=== PATIENT | male | born 1935 | race Two or more races ===

== ENCOUNTER 2023-12-26 16:15 | Inpatient (IN) | payer OTHER ==
[~2023-12-26] VITALS: Ht 152.4 cm; Wt 63.5 kg
[2023-12-26] MEDS ORDERED: LOSARTAN POTASS50 MG PO (16:32)
[2023-12-26] MEDS ORDERED: TAMS0.4C PO (16:32)
[2023-12-26] MEDS ORDERED: JANUMET XR 1001 EACH PO (16:32)
[2023-12-26] MEDS ORDERED: GLIPIZIDE XL10 MG (16:32)
[2023-12-26] MEDS ORDERED: RESTORIL30 M1 PO (16:32)
[2023-12-26] MEDS ORDERED: PLAVIX75 MG PO (16:33)
[2023-12-26] MEDS ORDERED: LIPITOR20 MG PO (16:33)
[2023-12-26] MEDS ORDERED: ZETIA10 MG PO (16:33)
[2023-12-26] MEDS ORDERED: NIFEDIPINE ER30 M1 PO (16:33)
[2023-12-26] MEDS ORDERED: NABUMETONE750 MG (16:33)
[2023-12-26] MEDS ORDERED: FEROCON CAPSUL1 EACH PO (16:34)
[2023-12-26] MEDS ORDERED: CARVEDILOL ER40 MG (16:34)
[2023-12-26] MEDS ORDERED: 0.9 % SODIUM CHLORIDE 1,000 ML IV SCH ×2 (16:45→17:00)
[2023-12-26] MEDS ORDERED: LINEZOLID IN DEXTROSE 5% 600 MG/300 ML PIGGYBAG IV ONE (16:45)
--- NOTE | 2023-12-26 16:46 | NUR ---
PACIENTE ALERTA Y ORIENTADO X3, EN COMPANIA DE FAMILIAR QUIEN REFIERE LO JORDEN POR CANGRENA EN EL PIE JUNA. SE MONITOREAN VS Y SE UBICA
[2023-12-26] MEDS ORDERED: KETOROLAC TROMETHAMINE 15 MG VIAL IU ONE (17:00)
[2023-12-26] MEDS ORDERED: DEXTROSE 50 % IN WATER 0.5 G/ML DISP.SYRIN IV PRN (17:00)
[2023-12-26] MEDS ORDERED: INSULIN LISPRO 1,000 UNIT/10 ML UNITS SUBCUTANEO PRN (17:00)
[2023-12-26] MEDS ORDERED: ACETAMINOPHEN 500 MG GEL..CAP PO PRN (17:00)
[2023-12-26] MEDS ORDERED: KETOROLAC TROMETHAMINE 30 MG VIAL ONE ×2 (17:13→21:19)
[2023-12-26 17:21] LABS: HEMATOCRIT 34.7 % (39.0-48.0); HEMOGLOBIN 11.9 g/dL (13-16.00); MEAN CELL VOLUME 89.8 fL (80.0-100.00); MEAN CORPUSCULAR HEMOGLOBIN 30.9 pg (27.00-32.0); MEAN CORPUSCULAR HGB CONC 34.4 g/dl (32.0-36.0); PLATELET COUNT 327 K/uL (150-450); RED BLOOD COUNT 3.86 M/uL (4.00-6.00); RED CELL DISTRIBUTION WIDTH 13.1 % (11.5-14.5)
[2023-12-26 17:43] LABS: INR 1.09; PARTIAL THROMBOPLASTIN TIME 31.9 SECONDS (22.0-34.0); PROTHROMBIN TIME 11.4 SECONDS (9.0-11.5)
[2023-12-26 19:18] LABS: URINE APPEARANCE Cloudy; URINE BILIRRUBIN Negative (NEGATIVE); URINE BLOOD Negative; URINE COLOR Yellow; URINE KETONE Trace (NEGATIVE); URINE LEUKOCYTE Negative; URINE NITRATE Negative; URINE UROBILINOGEN 0.2 E.U./dl
[2023-12-26 19:20] LABS: URINE GLUCOSE >=1000 MG/DL (NEGATIVE); URINE PROTEIN 100 (NEGATIVE)
[2023-12-26 19:21] LABS: URINE BACTERIA 30.2 uL (0.0-1933); URINE CAST 5.03 uL (0.0-1.40); URINE EPITHELIAL CELLS 14.2 uL (0.0-38.8); URINE WBC 6.6 uL (0.0-23.2)
[2023-12-26 19:22] LABS: URINE RBC 1.2 uL (0.0-20.8)
[2023-12-26] MEDS ORDERED: CARVEDILOL 6.25 MG TABLET PO SCH (21:00)
[2023-12-26] MEDS ORDERED: KETOROLAC TROMETHAMINE 30 MG VIAL IV STA (21:07)
[2023-12-26] MEDS ORDERED: KETOROLAC TROMETHAMINE 30 MG VIAL IV PRN (21:15)
[2023-12-26 21:59] LABS: CALCIUM 10.1 mg/dL (8.5-10.1); CREATININE SERUM 1.08 mg/dL (0.70-1.30); GFR 64.68; POTASSIUM 4.14 mEq/L (3.5-5.1)
[2023-12-27] MEDS ORDERED: FAMOTIDINE/PF 20 MG/2 ML VIAL ONE (08:13)
[2023-12-27] MEDS ORDERED: ENOXAPARIN SODIUM 40 MG/0.4 ML SYRINGE SUBCUTANEO SCH (09:00)
[2023-12-27] MEDS ORDERED: TAMSULOSIN HCL 0.4 MG CAP PO SCH (09:00)
[2023-12-27] MEDS ORDERED: FAMOTIDINE/PF 20 MG in 0.9 % SODIUM CHLORIDE 8 ML IV PUSH SCH (09:00)
[2023-12-27] MEDS ORDERED: SODIUM HYPOCHLORITE 1OZ TOP SCH (09:00)
[2023-12-27] MEDS ORDERED: IRON FUM,PS/FOLIC/BCOMP,C NO.9 1 CAP CAPSULE PO SCH (09:00)
[2023-12-27] MEDS ORDERED: LINEZOLID IN DEXTROSE 5% 300 ML IV SCH (09:00)
[2023-12-27] MEDS ORDERED: ATORVASTATIN CALCIUM 40 MG TABLET PO SCH (09:00)
[2023-12-27] MEDS ORDERED: LOSARTAN POTASSIUM 50 MG TABLET PO SCH (09:00)
[2023-12-27 12:09] LABS: HEMATOCRIT 33.4 % (39.0-48.0); HEMOGLOBIN 11.5 g/dL (13-16.00); MEAN CELL VOLUME 89.9 fL (80.0-100.00); MEAN CORPUSCULAR HEMOGLOBIN 30.9 pg (27.00-32.0); MEAN CORPUSCULAR HGB CONC 34.4 g/dl (32.0-36.0); PLATELET COUNT 302 K/uL (150-450); RED BLOOD COUNT 3.72 M/uL (4.00-6.00); RED CELL DISTRIBUTION WIDTH 13.2 % (11.5-14.5)
[2023-12-28] MEDS ORDERED: FAMOTIDINE/PF 20 MG/2 ML VIAL ONE (08:27)
[2023-12-28 08:47] LABS: HEMATOCRIT 29.8 % (39.0-48.0); HEMOGLOBIN 10.3 g/dL (13-16.00); MEAN CELL VOLUME 88.8 fL (80.0-100.00); MEAN CORPUSCULAR HEMOGLOBIN 30.5 pg (27.00-32.0); MEAN CORPUSCULAR HGB CONC 34.4 g/dl (32.0-36.0); PLATELET COUNT 300 K/uL (150-450); RED BLOOD COUNT 3.36 M/uL (4.00-6.00)
[2023-12-28] MEDS ORDERED: CEFEPIME HCL 2,000 MG VIAL IV SCH (09:00)
[2023-12-28 09:27] LABS: ALBUMIN 2.9 gm/dL (3.4-5.0); BILIRUBIN TOTAL 0.46 mg/dL (0.3-1.2); CALCIUM 8.7 mg/dL (8.5-10.1); CREATININE SERUM 0.96 mg/dL (0.70-1.30); GFR 74.09; GLOBULINA 3.9 G/DL (2.4-3.5); POTASSIUM 4.38 mEq/L (3.5-5.1); TOTAL PROTEIN 6.8 gm/dL (6.4-8.2)
[2023-12-28] MEDS ORDERED: INSULIN NPH HUM/REG INSULIN HM 1,000 UNIT/10 ML UNITS SUBCUTANEO STA (11:04)
[2023-12-28] MEDS ORDERED: AMLODIPINE BESYLATE 5 MG TABLET PO SCH (17:00)
[2023-12-28] MEDS ORDERED: MORPHINE SULFATE 4 MG/ML VIAL IV PRN (19:00)
[2023-12-28] MEDS ORDERED: LINEZOLID 600 MG TABLET PO SCH (21:00)
[2023-12-29] MEDS ORDERED: INSULIN NPH HUM/REG INSULIN HM 1,000 UNIT/10 ML UNITS SUBCUTANEO SCH (08:00)
[2023-12-29] MEDS ORDERED: FAMOTIDINE/PF 20 MG/2 ML VIAL ONE (09:15)
[2023-12-29] MEDS ORDERED: TEMAZEPAM 15 MG CAPSULE PO SCH (21:00)
[2023-12-30] MEDS ORDERED: GABAPENTIN 100 MG CAPSULE PO STA (00:24)
[2023-12-30] MEDS ORDERED: DIPHENHYDRAMINE HCL 50 MG/ML VIAL 1ML IV PRN (00:30)
[2023-12-30] MEDS ORDERED: ONDANSETRON HCL 2 MG/ML VIAL IV PRN (00:30)
[2023-12-30] MEDS ORDERED: NALOXONE HCL 0.4 MG/ML AMPUL IV PRN (00:30)
[2023-12-30] MEDS ORDERED: GABAPENTIN 100 MG CAPSULE PO SCH (01:00)
[2023-12-30] MEDS ORDERED: INSULIN NPH HUM/REG INSULIN HM 1,000 UNIT/10 ML UNITS SUBCUTANEO SCH (17:00)
[2023-12-31] MEDS ORDERED: MORPHINE SULFATE 4 MG/ML CARTRIDGE IV ONE (16:15)
[2023-12-31] MEDS ORDERED: SENNA/DOCUSATE SODIUM 1 TAB TABLET PO SCH (21:00)
[2024-01-01 08:38] LABS: ALBUMIN 2.4 gm/dL (3.4-5.0); CALCIUM 8.4 mg/dL (8.5-10.1); CREATININE SERUM 0.88 mg/dL (0.70-1.30); GFR 81.92; PHOSPHOROUS 3.5 mg/dL (2.5-4.9); POTASSIUM 4.37 mEq/L (3.5-5.1)
[2024-01-01] MEDS ORDERED: MORPHINE SULFATE 4 MG/ML VIAL IV PRN (19:45)
[2024-01-02] MEDS ORDERED: MORPHINE SULFATE 4 MG/ML CARTRIDGE IV PRN (11:30)
[2024-01-03] MEDS ORDERED: INSULIN NPH HUM/REG INSULIN HM 1,000 UNIT/10 ML UNITS SUBCUTANEO SCH (08:00)
[2024-01-03] MEDS ORDERED: CEFTRIAXONE SODIUM 2,000 MG VIAL IV SCH (09:00)
[2024-01-03] MEDS ORDERED: CARVEDILOL 12.5 MG TABLET PO SCH (09:00)
[2024-01-03] MEDS ORDERED: AMLODIPINE BESYLATE 10 MG TABLET PO SCH (17:00)
[2024-01-03] MEDS ORDERED: LOSARTAN POTASSIUM 50 MG TABLET PO SCH (17:00)
[2024-01-04] MEDS ORDERED: MORPHINE SULFATE 4 MG/ML CARTRIDGE IV PRN (09:45)
[2024-01-05] MEDS ORDERED: INSULIN LISPRO 1,000 UNIT/10 ML UNITS SUBCUTANEO SCH (08:00)
[2024-01-05] MEDS ORDERED: INSULIN NPH HUM/REG INSULIN HM 1,000 UNIT/10 ML UNITS SUBCUTANEO SCH (17:00)
[2024-01-07 06:34] LABS: MEAN CELL VOLUME 89.3 fL (80.0-100.00); MEAN CORPUSCULAR HGB CONC 35.2 g/dl (32.0-36.0); PLATELET COUNT 329 K/uL (150-450); RED BLOOD COUNT 2.59 M/uL (4.00-6.00); RED CELL DISTRIBUTION WIDTH 13.3 % (11.5-14.5)
[2024-01-07 06:47] LABS: ALBUMIN 2.3 gm/dL (3.4-5.0); BILIRUBIN TOTAL 0.51 mg/dL (0.3-1.2); CALCIUM 8.1 mg/dL (8.5-10.1); CREATININE SERUM 0.81 mg/dL (0.70-1.30); GFR 90.14; GLOBULINA 3.6 G/DL (2.4-3.5); POTASSIUM 3.82 mEq/L (3.5-5.1); TOTAL PROTEIN 5.9 gm/dL (6.4-8.2)
[2024-01-07 06:48] LABS: C-REACTIVE PROTEIN 13.7 MG/DL (0.00-0.29)
[2024-01-07 06:50] LABS: ERYTHROCYTE SEDIMENTATION RATE 67 mm/hr
[2024-01-07 07:02] LABS: MEAN CORPUSCULAR HEMOGLOBIN 31.2 pg (27.00-32.0)
[2024-01-07 07:03] LABS: HEMATOCRIT 23.1 % (39.0-48.0); HEMOGLOBIN 8.1 g/dL (13-16.00)
[2024-01-07] MEDS ORDERED: CLOPIDOGREL BISULFATE 75 MG TABLET PO SCH (09:00)
[2024-01-07] MEDS ORDERED: TRAMADOL HCL 50 MG TABLET PO STA (13:08)
[2024-01-07 17:06] LABS: MEAN CELL VOLUME 89.3 fL (80.0-100.00); MEAN CORPUSCULAR HEMOGLOBIN 30.4 pg (27.00-32.0); MEAN CORPUSCULAR HGB CONC 34.2 g/dl (32.0-36.0); PLATELET COUNT 357 K/uL (150-450); RED BLOOD COUNT 2.56 M/uL (4.00-6.00)
[2024-01-07 17:08] LABS: HEMATOCRIT 22.9 % (39.0-48.0)
[2024-01-07 17:16] LABS: HEMOGLOBIN 7.8 g/dL (13-16.00)
[2024-01-07] MEDS ORDERED: SOD FERRIC GLUC COMPLX/SUCROSE 125 MG in 0.9 % SODIUM CHLORIDE 100 ML IV SCH (20:34)
[2024-01-07] MEDS ORDERED: VITAMIN B COMPLEX/LYSINE 1 ML ML PO SCH (20:35)
[2024-01-08] MEDS ORDERED: MORPHINE SULFATE 4 MG/ML CARTRIDGE IV PRN (07:30)
[2024-01-10] MEDS ORDERED: TRAMADOL HCL 50 MG TABLET PO PRN (06:30)
[2024-01-10] MEDS ORDERED: TRAMADOL HCL 50 MG TABLET PO STA (06:30)
[2024-01-10] MEDS ORDERED: INSULIN NPH HUM/REG INSULIN HM 1,000 UNIT/10 ML UNITS SUBCUTANEO SCH (08:00)
[2024-01-10 15:18] LABS: MEAN CELL VOLUME 88.1 fL (80.0-100.00); MEAN CORPUSCULAR HGB CONC 34.6 g/dl (32.0-36.0); PLATELET COUNT 420 K/uL (150-450); RED BLOOD COUNT 2.65 M/uL (4.00-6.00); RED CELL DISTRIBUTION WIDTH 13.5 % (11.5-14.5)
[2024-01-10 15:20] LABS: HEMATOCRIT 23.4 % (39.0-48.0); HEMOGLOBIN 8.1 g/dL (13-16.00); MEAN CORPUSCULAR HEMOGLOBIN 30.5 pg (27.00-32.0)
[2024-01-10] MEDS ORDERED: PANTOPRAZOLE SODIUM 40 MG TABLET.DR PO SCH (17:00)
[2024-01-11] MEDS ORDERED: INSULIN LISPRO 1,000 UNIT/10 ML UNITS SUBCUTANEO PRN (05:15)
[2024-01-11] MEDS ORDERED: INSULIN NPH HUM/REG INSULIN HM 1,000 UNIT/10 ML UNITS SUBCUTANEO SCH (08:00)
[2024-01-11] MEDS ORDERED: ENOXAPARIN SODIUM 30 MG/0.3 ML SYRINGE SUBCUTANEO SCH (09:00)
[2024-01-11 11:01] LABS: HEMATOCRIT 30.8 % (39.0-48.0); MEAN CELL VOLUME 89.4 fL (80.0-100.00); MEAN CORPUSCULAR HEMOGLOBIN 30.8 pg (27.00-32.0); MEAN CORPUSCULAR HGB CONC 34.5 g/dl (32.0-36.0); PLATELET COUNT 383 K/uL (150-450); RED BLOOD COUNT 3.44 M/uL (4.00-6.00); RED CELL DISTRIBUTION WIDTH 13.6 % (11.5-14.5)
[2024-01-11 11:18] LABS: HEMOGLOBIN 10.6 g/dL (13-16.00)
[2024-01-11] MEDS ORDERED: METROnidazole 500 MG TABLET PO SCH (17:00)
[2024-01-12] MEDS ORDERED: CEFEPIME HCL 2,000 MG in 0.9 % SODIUM CHLORIDE 100 ML IV SCH (21:00)
[2024-01-13] MEDS ORDERED: GABAPENTIN 300 MG CAPSULE PO SCH (17:25)
[2024-01-13] MEDS ORDERED: MORPHINE SULFATE 4 MG/ML CARTRIDGE IV PRN (17:30)
[2024-01-13] MEDS ORDERED: KETOROLAC TROMETHAMINE 30 MG VIAL IV SCH (18:00)
[2024-01-14 08:22] LABS: HEMATOCRIT 32.1 % (39.0-48.0); HEMOGLOBIN 10.6 g/dL (13-16.00); MEAN CELL VOLUME 89.7 fL (80.0-100.00); MEAN CORPUSCULAR HEMOGLOBIN 29.8 pg (27.00-32.0); MEAN CORPUSCULAR HGB CONC 33.2 g/dl (32.0-36.0); PLATELET COUNT 389 K/uL (150-450); RED BLOOD COUNT 3.58 M/uL (4.00-6.00); RED CELL DISTRIBUTION WIDTH 14.2 % (11.5-14.5)
[2024-01-15 08:31] LABS: BILIRUBIN TOTAL 0.54 mg/dL (0.3-1.2); CALCIUM 7.9 mg/dL (8.5-10.1); CREATININE SERUM 0.81 mg/dL (0.70-1.30); GFR 90.14; POTASSIUM 4.01 mEq/L (3.5-5.1)
[2024-01-16] MEDS ORDERED: TEMAZEPAM 15 MG CAPSULE PO SCH (21:00)
[2024-01-17 07:29] LABS: HEMATOCRIT 31.9 % (39.0-48.0); HEMOGLOBIN 10.5 g/dL (13-16.00); MEAN CELL VOLUME 90.1 fL (80.0-100.00); MEAN CORPUSCULAR HEMOGLOBIN 29.5 pg (27.00-32.0); MEAN CORPUSCULAR HGB CONC 32.8 g/dl (32.0-36.0); PLATELET COUNT 368 K/uL (150-450); RED BLOOD COUNT 3.55 M/uL (4.00-6.00); RED CELL DISTRIBUTION WIDTH 14.4 % (11.5-14.5)
[2024-01-17 08:23] LABS: CALCIUM 7.8 mg/dL (8.5-10.1); CREATININE SERUM 0.85 mg/dL (0.70-1.30); GFR 85.26; POTASSIUM 4.26 mEq/L (3.5-5.1)
[2024-01-17] MEDS ORDERED: DOCUSATE SODIUM 100MG CAP PO SCH (18:52)
[2024-01-18] MEDS ORDERED: INSULIN NPH HUM/REG INSULIN HM 1,000 UNIT/10 ML UNITS SUBCUTANEO SCH ×2 (08:00→17:00)
[2024-01-20] MEDS ORDERED: INSULIN NPH HUM/REG INSULIN HM 1,000 UNIT/10 ML UNITS SUBCUTANEO SCH (08:17)
== END 2024-01-20 17:54 | disposition designated cancer center or children's hospital (05) | DRG 240 ==
LOC: ER 16:15 → MEDJ 17:06
PROVIDERS: Emergency Medicine; Internal Medicine; Internal Medicine Hematology & Oncology; Internal Medicine Nephrology; Specialist; Student in an Organized Health Care Education/Training Program; ADMIT Internal Medicine; ATTEND Internal Medicine
PROC: B44HZZZ Ultrasonography of Bilateral Lower Extremity Arteries (ICD-10-PCS; 2023-12-26)
PROC: B54DZZZ Ultrasonography of Bilateral Lower Extremity Veins (ICD-10-PCS; 2023-12-26)
PROC: B24BZZZ Ultrasonography of Heart with Aorta (ICD-10-PCS; 2024-01-01)
PROC: CW1N1ZZ Planar Nuclear Medicine Imaging of Whole Body using Technetium 99m (Tc-99m) (ICD-10-PCS; 2024-01-03)
PROC: 0JDR0ZZ Extraction of Left Foot Subcutaneous Tissue and Fascia, Open Approach (ICD-10-PCS; 2024-01-07)
PROC: 30233N1 Transfusion of Nonautologous Red Blood Cells into Peripheral Vein, Percutaneous Approach (ICD-10-PCS; 2024-01-10)
PROC: 0Y6J0Z1 Detachment at Left Lower Leg, High, Open Approach (ICD-10-PCS; principal; 2024-01-13 15:45)
DX: E11.52 Type 2 diabetes mellitus with diabetic peripheral angiopathy with gangrene (principal); I96 Gangrene, not elsewhere classified; N17.9 Acute kidney failure, unspecified; M86.172 Other acute osteomyelitis, left ankle and foot; E11.621 Type 2 diabetes mellitus with foot ulcer; L97.529 Non-pressure chronic ulcer of other part of left foot with unspecified severity; L03.032 Cellulitis of left toe; B96.89 Other specified bacterial agents as the cause of diseases classified elsewhere; Z79.4 Long term (current) use of insulin; E78.5 Hyperlipidemia, unspecified; I25.10 Atherosclerotic heart disease of native coronary artery without angina pectoris; I11.9 Hypertensive heart disease without heart failure; Z95.1 Presence of aortocoronary bypass graft; E11.65 Type 2 diabetes mellitus with hyperglycemia; D64.9 Anemia, unspecified; I77.1 Stricture of artery